=== PATIENT | male | born 1975 | race Caucasian/White ===

== ENCOUNTER → 2017-03-16 | Outpatient (CLI) | payer BC ==
[~2017-03-16] VITALS: Ht 188 cm; Wt 118.2 kg
[~2017-03-16] MED LIST: ALLEGRA ODT30 MG NS; BYSTOLIC20 MG PO; MULTIPLE VITAMI1 CAP PO; PRILOSEC 20MG20 MG PO; SINGULAIR 110 MG/TAB PO; ZESTRIL 10MG10 MG PO; ZOLOFT 50MG50 MG PO
[2017-03-16 13:59] VITALS: BP 151/84; PULSE 67
[2017-03-16 15:02] VITALS: BP 141/81; PULSE 58
== END ==
LOC: COL.RAD 13:30
DX: M48.02 Spinal stenosis, cervical region (principal); M50.220 Other cervical disc displacement, mid-cervical region, unspecified level
CPT/HCPCS: J1100

== ENCOUNTER → 2017-04-27 | Outpatient (CLI) | payer BC ==
[~2017-04-27] VITALS: Ht 188 cm; Wt 123.2 kg
[2017-04-27 14:17] VITALS: BP 146/90; PULSE 67
[2017-04-27 15:15] VITALS: BP 154/95; PULSE 65
== END ==
LOC: COL.RAD 04-22 13:30
DX: M54.12 Radiculopathy, cervical region (principal)
CPT/HCPCS: J1100

== ENCOUNTER 2018-08-07 12:27 | Emergency (ER) | payer OTHER ==
[~2018-08-07] VITALS: Ht 188 cm; Wt 118.2 kg
[2018-08-07 12:32] VITALS: BP 135/76; TEMP 97.9
[2018-08-07] MEDS ORDERED: ASPIRIN 81M81 MG/TA2 PO (13:49)
[2018-08-07] MEDS ORDERED: MONODOX100 PO (14:43)
[2018-08-07 15:00] VITALS: PULSE 68
== END 2018-08-07 15:00 | disposition home or self-care (01) ==
LOC: COL.ER 12:27
DX: S61.032A Puncture wound without foreign body of left thumb without damage to nail, initial encounter (principal); I10 Essential (primary) hypertension; K21.9 Gastro-esophageal reflux disease without esophagitis; Z23 Encounter for immunization; Z79.82 Long term (current) use of aspirin; W29.4XXA Contact with nail gun, initial encounter; Y92.009 Unspecified place in unspecified non-institutional (private) residence as the place of occurrence of the external cause

== ENCOUNTER → 2019-11-07 | Outpatient (CLI) | payer OTHER ==
[~2019-11-07] MED LIST changes: +ASPIRIN 81M81 MG/TA2 PO; +MONODOX100 PO
== END ==
LOC: COL.RAD 07:12
DX: M25.441 Effusion, right hand (principal); M77.9 Enthesopathy, unspecified

== ENCOUNTER 2020-03-04 19:51 | Emergency (ER) | payer OTHER ==
[~2020-03-04] VITALS: Ht 193 cm; Wt 120.5 kg
[2020-03-04 19:56] VITALS: TEMP 99
[2020-03-04 20:58] VITALS: BP 131/89; PULSE 73
== END 2020-03-04 20:58 | disposition home or self-care (01) ==
LOC: COL.ER 19:51
DX: S60.222A Contusion of left hand, initial encounter (principal); I10 Essential (primary) hypertension; K21.9 Gastro-esophageal reflux disease without esophagitis; Z79.82 Long term (current) use of aspirin; W22.8XXA Striking against or struck by other objects, initial encounter

== ENCOUNTER 2020-05-10 09:54 | Outpatient (RCR) | payer OTHER ==
[~2020-05-10] VITALS: Ht 193 cm; Wt 127.3 kg
[2020-05-10 10:00] VITALS: BP 161/101; PULSE 71; TEMP 97.5
== END 2020-07-02 ==
LOC: COL.ER
DX: Z29.14 Encounter for prophylactic rabies immune globulin (principal)

== ENCOUNTER → 2020-07-03 | Outpatient (CLI) | payer OTHER, BC | LOC: COL.RAD 07:13 | DX: M47.817 Spondylosis without myelopathy or radiculopathy, lumbosacral region (principal); M47.816 Spondylosis without myelopathy or radiculopathy, lumbar region; M96.1 Postlaminectomy syndrome, not elsewhere classified | CPT/HCPCS: A9585 ==

== ENCOUNTER → 2020-11-05 | Outpatient (CLI) | payer BC | LOC: COL.RAD 10:28 | DX: K76.0 Fatty (change of) liver, not elsewhere classified (principal); M51.26 Other intervertebral disc displacement, lumbar region; M51.36 Other intervertebral disc degeneration, lumbar region ==